=== PATIENT | male | born 1975 | race Two or more races ===

== ENCOUNTER 2023-10-03 16:46 | Emergency (ER) | payer MEDICARE, MEDICAID, SELFPAY ==
[2023-10-03 16:50] VITALS: BP 127/78; PULSE 74; RESP 18; TEMP 36.7; O2SAT 97; BMI 22.8
--- NOTE | 2023-10-03 19:21 | EDS_ITS ---
HPI History of Present Illness Chief Complaint: Complaint Informant: patient and SNF Pain Onset: Weeks Current Severity: Mild Maximum Severity: Mild Narrative Narrative: 48-year-old male history of prior strokes a extended-care facility resident. States he has chronic penile pain. He has a suprapubic catheter. Currently being treated for UTI. They sent him into have this pain evaluated. He also has a history of diabetes. Prior similar symptoms: Yes Recent Illness/Hospitalization: No PFSH PFS Medical History Suprapubic catheter Anxiety Hypothyroidism Diabetes Stroke/cerebrovascular accident Home Medications ?Medication ?Instructions ?Recorded ?Last Taken ?Type acetaminophen 650 mg/20.3 mL oral 650 mg (20.3 mL) G-tube Q6H PRN 12/12/13 Unknown Rx solution PRN mild-mod pain, fever >101F ##1 albuterol sulfate 2.5 mg/3 mL 2.5 mg (3 mL) inhalation Q2H PRN 12/12/13 Unknown Rx (0.083 %) solution for nebulization PRN WHEEZING ##1 artificial 2 drp Q4H PRN DRY EYES ##1 12/12/13 Unknown Rx tears(vwwjelf-svofvwzv-enmndyd) 0.1 %-0.3 %-0.2 % eye drops (GenTeal Tears Moderate) aspirin 325 mg tablet 325 mg G-tube DAILY@0800 ##1 12/12/13 Unknown Rx cephalexin 250 mg/5 mL oral 500 mg (10 mL) PO Q6 ##1 12/12/13 Unknown Rx suspension famotidine 20 mg tablet 20 mg G-tube BID ##1 12/12/13 Unknown Rx insulin detemir U-100 100 unit/mL 40 units (0.4 mL) subcut Q12H ##1 12/12/13 Unknown Rx (3 mL) subcutaneous pen (Levemir FlexTouch U-100 Insulin) ondansetron HCl 8 mg tablet 8 mg G-tube Q6H PRN PRN Nausea ##1 12/12/13 Unknown Rx polyethylene glycol 3350 17 gram 17 g G-tube QHS ##1 12/12/13 Unknown Rx oral powder packet warfarin 5 mg tablet (Jantoven) 5 mg PO DAILY@1700 ##1 12/12/13 Unknown Rx Allergy/AdvReac Type Severity Reaction Status Date / Time No Known Allergies Allergy Verified 11/17/13 02:10 Social History Smoking Status: Former smoker ROS ROS ED ROS Narrative Penile pain. Denies any other complaints. Review of Systems ROS Unobtainable: Denies due to encephalopathy Constitutional Constitutional ED: Denies chills or fever(s) Eyes Eyes: Denies blurry vision ENT ENT ED: Denies ear pain Cardiovascular Cardiovascular: Denies chest pain or palpitations Respiratory/Chest Respiratory/Chest: Denies cough or dyspnea Gastrointestinal Gastrointestinal: Denies abdominal pain Genitourinary Genitourinary ED: Denies dysuria Musculoskeletal Musculoskeletal: Denies arthralgias Integumentary Denies abscess Neurologic Neurologic: Denies headache(s) Psychiatric Psychiatric: Denies anxiety or depression Endocrine Endocrinology: Denies polydipsia Hematologic/Lymphatic Hematologic/Lymphatic: Denies easy bleeding, easy bruising or lymphadenopathy Allergic/Immunologic Allergic/Immunologic ED: Denies mouth swelling, tongue swelling or urticaria EXAM Physical Exam Narrative Exam Narrative: 48-year-old male sitting upright in bed. Vital signs stable afebrile. H EENT exam moist mucous membranes. Neck nontender. Lungs clear to auscultation. Heart regular rhythm rate about 70 no murmur. Chest wall and ribs nontender. Abdomen soft nondistended. Normal bowel sounds no peritoneal signs. Patient does have an indwelling Wu catheter. She currently being treated for UTI. External exam is a circumcised male. There is no penile bleeding or discharge. There is no signs of infection around the foreskin. There is no signs of trauma. There is no bleeding or bruising. His scrotum reportedly only has 1 testicle. He may have a hydrocele. There is no signs of cellulitis or scrotal abscess. There is no signs of torsion. Extremities and skin contracture and paralysis in the right upper and lower extremity. Extreme weakness in the left lower extremity. He is moving the left upper extremity. Neurological he is awake. He answers questions. He obviously has right-sided paralysis from prior strokes. Const Vital Signs: 10/03/23 16:50 Temperature 98.0 F Temperature Source Oral Pulse Rate 74 Respiratory Rate 18 Blood Pressure 127/78 H Blood Pressure Mean 94 Pulse Ox 97 Oxygen Delivery Method Room Air Positive well nourished, well developed and contractures; Negative for cachectic or unkempt General Appearance ED: well developed, contractures and NAD; Negative for unkempt, cachectic or pallor Nutritional Appearance: Negative for cachectic HEENT Reports moist mucous membranes normocephalic and atraumatic; Negative for trauma or tenderness Eyes PERRL and EOMs intact bilaterally General Eye ED: Negative for pale conjunctiva or scleral icterus Neck no lymphadenopathy, supple and no JVD General: Negative for tenderness Resp normal respiratory effort and clear to auscultation bilaterally Effort and Inspection: Negative for retractions Auscultation: Negative for rales, rhonchi or wheezes Cardio regular rate, regular rhythm, S1 normal heart sound, S2 normal heart sound and no murmurs Rate: Negative for bradycardia or tachycardic Rhythm: Negative for abnormal rhythm Heart Sounds: Negative for other GI non-tender, non-distended and no masses Inspection: Negative for abdominal distention Auscultation: normoactive bowel sounds Palpation: soft; Negative for tender or guarding no CVA tenderness Back/Spine no CVA tenderness Extremity Negative for normal to inspection Extremity Narrative: Right-sided paralysis. Left leg weakness. Contracture of the right upper extremity. General Extremety ED: Negative for edema General Extremity: Negative for edema Neuro oriented x3, No moves all extremities and No no focal motor deficits Sensorium / Orientation: alert, oriented to person and oriented to place Motor Exam: strength abnormal Psych mental status grossly normal Appearance: Negative for unkempt Mood & Affect: Negative for depressed, anxious or tearful Thought Process: normal thought process Skin General Skin Exam: Negative for jaundice or pallor Lesions: no lesions Rashes: no rashes MDM MDM MDM Narrative Medical decision making narrative: 68-year-old male sent in from [facility] facility I spoke to them. He has chronic penile pain. He sees urologist at [facility]. He has an indwelling Wu catheter that they are currently treating him for UTI and is on antibiotics. There is nothing specifically abnormal with his penile exam. There is no discharge or bleeding. There are no lesions. He is circumcised. His scrotum he may have a hydrocele. There is no signs of torsion. There is no cellulitis or or scrotal abscess. There is no foreign years. Showing not much to add today with any specific test. He has been worked up for this by the [facility]. Patient was offered something for pain which she did not want at this time. I spoke to the extended care facility. He will be discharged back to there for outpatient urology follow-up. Discharge Plan Triage Chief Complaint: Complaint ED Provider: Igor Rowland Dx/Rx/DC Orders Clinical Impression: Chronic pain in penis, Right hemiplegia, History of stroke, Acute UTI, History of diabetes mellitus Prescriptions: No Action albuterol sulfate 2.5 MG/3 ML solution for nebulization 2.5 mg inhalation Q2H PRN PRN (Reason: WHEEZING) Qty: 1 0RF polyethylene glycol 3350 17 GM powder in packet 17 g G-tube QHS Qty: 1 0RF aspirin 325 MG tablet 325 mg G-tube DAILY@0800 Qty: 1 0RF famotidine 20 MG tablet 20 mg G-tube BID Qty: 1 0RF warfarin [Jantoven] 5 MG tablet 5 mg PO DAILY@1700 Qty: 1 0RF artificial tear(vgqwy-qme-qip) [GenTeal Tears Moderate] 1 DROP bottle 2 drp Each Eye Q4H PRN (Reason: DRY EYES) Qty: 1 0RF insulin detemir U-100 [Levemir FlexTouch U100 Insulin] 100 UNITS/ML insulin pen 40 units subcut Q12H Qty: 1 0RF acetaminophen 650 MG/20 ML solution 650 mg G-tube Q6H PRN PRN (Reason: mild-mod pain, fever >101F) Qty: 1 0RF ondansetron HCl 8 MG tablet 8 mg G-tube Q6H PRN PRN (Reason: Nausea) Qty: 1 0RF cephalexin 250 MG/5 ML suspension for reconstitution 500 mg PO Q6 Qty: 1 0RF Rx Instructions: use for two days then discontinue Primary Care Provider: Dennis Romero Referrals: Dennis Romero MD [Primary Care Provider] - As Needed Activity Restrictions/Additional Instructions: His urologic exam is unremarkable. There is no signs of any penile trauma or infection. He was offered pain meds and did not want anything. Pain meds as needed at your facility. Follow-up with his urologist. Print Language: Malagasy Disposition Disposition: Home, Self Care
[2023-10-03 19:40] VITALS: BP 129/69; PULSE 78; RESP 18; TEMP 36.8; O2SAT 95
--- NOTE | 2023-10-03 21:16 | ED.RN ---
REPORT CALLED TO DIVINE NURSE GAUTAM
== END 2023-10-03 21:21 | disposition home or self-care (01) ==
PROVIDERS: Emergency Provider Emergency Medicine; PCP Family Medicine; Visit Provider Emergency Medicine
DX: N48.89 Other specified disorders of penis (principal); I69.351 Hemiplegia and hemiparesis following cerebral infarction affecting right dominant side; E11.9 Type 2 diabetes mellitus without complications; N39.0 Urinary tract infection, site not specified; Z87.891 Personal history of nicotine dependence; G89.29 Other chronic pain
CPT/HCPCS: 99282

== ENCOUNTER 2023-10-13 17:49 | Emergency (ER) | payer MEDICARE, MEDICAID, SELFPAY ==
[2023-10-13 17:51] VITALS: BP 143/91; PULSE 69; RESP 18; TEMP 36.1; O2SAT 98; BMI 23.9
--- NOTE | 2023-10-13 18:17 | EDS_ITS ---
HPI HPI - Female History of Present Illness Chief Complaint: [facility] Medical History Suprapubic catheter Anxiety Hypothyroidism Diabetes Stroke/cerebrovascular accident Home Medications ?Medication ?Instructions ?Recorded ?Last Taken ?Type acetaminophen 650 mg/20.3 mL oral 650 mg (20.3 mL) G-tube Q6H PRN 12/12/13 Unknown Rx solution PRN mild-mod pain, fever >101F ##1 albuterol sulfate 2.5 mg/3 mL 2.5 mg (3 mL) inhalation Q2H PRN 12/12/13 Unknown Rx (0.083 %) solution for nebulization PRN WHEEZING ##1 artificial 2 drp Q4H PRN DRY EYES ##1 12/12/13 Unknown Rx tears(jgcoshx-syyyxfvc-nogqiyf) 0.1 %-0.3 %-0.2 % eye drops (GenTeal Tears Moderate) aspirin 325 mg tablet 325 mg G-tube DAILY@0800 ##1 12/12/13 Unknown Rx cephalexin 250 mg/5 mL oral 500 mg (10 mL) PO Q6 ##1 12/12/13 Unknown Rx suspension famotidine 20 mg tablet 20 mg G-tube BID ##1 12/12/13 Unknown Rx insulin detemir U-100 100 unit/mL 40 units subcut Q12H ##1 12/12/13 Unknown Rx (3 mL) subcutaneous pen (Levemir FlexTouch U-100 Insulin) ondansetron HCl 8 mg tablet 8 mg G-tube Q6H PRN PRN Nausea ##1 12/12/13 Unknown Rx polyethylene glycol 3350 17 gram 17 g G-tube QHS ##1 12/12/13 Unknown Rx oral powder packet warfarin 5 mg tablet (Jantoven) 5 mg PO DAILY@1700 ##1 12/12/13 Unknown Rx sulfamethoxazole 800 1 tab PO BID #20 tabs 10/13/23 Unknown Rx mg-trimethoprim 160 mg tablet (Bactrim DS) Allergy/AdvReac Type Severity Reaction Status Date / Time No Known Allergies Allergy Verified 10/13/23 17:51 Social History Smoking Status: Former smoker EXAM Physical Exam Const Vital Signs: 10/13/23 17:51 10/13/23 21:50 10/13/23 21:53 Temperature 97.0 F L 97 F L Temperature Source Temporal Pulse Rate 69 82 82 Respiratory Rate 18 16 16 Blood Pressure 143/91 H 133/84 H 133/84 H Blood Pressure Mean 108 100 100 Pulse Ox 98 98 98 Oxygen Delivery Method Room Air Room Air [facility] [place] [facility] Narrative Medical decision making narrative: HISTORY OF PRESENT ILLNESS: 48-year-old male presents with concern for suprapubic catheter replacement. Per fdc stated his catheter is plugged and leaking. History limited per patient because he is nonverbal. REVIEW OF SYSTEMS: Pertinent positives: Suprapubic catheter malfunction Pertinent negatives: None that could be determined PHYSICAL EXAM: Nursing triage notes reviewed, Vital signs reviewed Constitutional: please see mdm HENT: MMM Eyes: Pupils equal round and reactive to light, Extraocular muscles intact Neck: No stridor, no JVD, full neck ROM Lungs: Clear to auscultation, No wheezing or rales. No increased work of breathing, no conversational dyspnea, no accessory muscle use, no nasal flaring. No respiratory distress noted Heart: Regular rate and rhythm, No murmurs, No rubs and No gallops, 2+ distal pulses (radial, femoral, posterior tibial) in all extremities Abdomen: Soft, suprapubic catheter site clean dry intact with no fluctuance induration or redness. : No CVAT Extremities: No edema Neuro: Contractures noted in upper extremities, seems to move all 4 extremities, appears to have sensation in all 4 extremities. Skin: No rash or lesions noted MEDICAL DECISION MAKING: Chief Complaint: Suprapubic catheter malfunction External records reviewed: Reviewed prior ED records: Reviewed ED visit from 10/03/2023 Factors affecting care: CVA Social determinants of health: n extended-care facility resident History obtained from others: EMS Consults: none [facility] Narrative: Patient was hemodynamically stable, afebrile, nontoxic-appearing. Exam without evidence of significant abdominal TTP, no signs of sepsis as vitals are stable. Patient is DNR CC. Attempt to flush suprapubic catheter but was unsuccessful. Using sterile technique an 18 Guyanese Wu cath was placed in the lumen with drainage of purulent thick urine drainage. Will send culture and give prophylactic antibiotics in the form of Bactrim. Will discharge back to [facility] with instructions to follow with urology and continue antibiotics for 10 days. The patient and/or family, caregivers express understanding. The patient and/or family, caregivers agrees with the plan. Shared decision making: I will have a discussion with the patient and or visitors regarding risk/benefits of further testing or admission. They will be made aware of of the risk/benefits inherent in this decision they will be given the opportunity to voice understanding. Total critical care time today provided was at least 0 minutes. This excludes separately billable procedures. Critical care time (if documented) is secondary to the patient having high probability of clinically significant/life threatening deterioration in the patient's condition which required my urgent intervention. Impression: 1. Suprapubic catheter malfunction 2. History of CVA Dispo: Discharge This note was generated with [employer] dictation software. It may contain incorrect words, spelling, and punctuation that were not noted in review of the chart prior to signing. Discharge Plan Triage Chief Complaint: Wu C/O ED Provider: Eric Willams Dx/Rx/DC Orders Instructions: ED Wu Catheter, Care Prescriptions: New sulfamethoxazole-trimethoprim [Bactrim DS] 800-160 mg tablet 1 tab PO BID Qty: 20 0RF No Action albuterol sulfate 2.5 MG/3 ML solution for nebulization 2.5 mg inhalation Q2H PRN PRN (Reason: WHEEZING) Qty: 1 0RF polyethylene glycol 3350 17 GM powder in packet 17 g G-tube QHS Qty: 1 0RF aspirin 325 MG tablet 325 mg G-tube DAILY@0800 Qty: 1 0RF famotidine 20 MG tablet 20 mg G-tube BID Qty: 1 0RF warfarin [Jantoven] 5 MG tablet 5 mg PO DAILY@1700 Qty: 1 0RF artificial tear(xollf-wou-mdt) [GenTeal Tears Moderate] 1 DROP bottle 2 drp Each Eye Q4H PRN (Reason: DRY EYES) Qty: 1 0RF insulin detemir U-100 [Levemir FlexTouch U100 Insulin] 100 UNITS/ML insulin pen 40 units subcut Q12H Qty: 1 0RF acetaminophen 650 MG/20 ML solution 650 mg G-tube Q6H PRN PRN (Reason: mild-mod pain, fever >101F) Qty: 1 0RF ondansetron HCl 8 MG tablet 8 mg G-tube Q6H PRN PRN (Reason: Nausea) Qty: 1 0RF cephalexin 250 MG/5 ML suspension for reconstitution 500 mg PO Q6 Qty: 1 0RF Rx Instructions: use for two days then discontinue Primary Care Provider: Dennis Romero Referrals: Ronaldo Hubbard MD [Med Staff - Active Staff] - Dennis Romero MD [Primary Care Provider] - Activity Restrictions/Additional Instructions: Thank you for trusting us with your care today! Please take Tylenol (2 pills, 650 mg), ibuprofen (2 pills, 400 mg) every 6 hours as needed for pain and fever control. Please take antibiotics as prescribed until course complete. Please return to the emergency department if your symptoms change or worsen. Please follow with your urologist for further outpatient evaluation and management. Print Language: Croatian Disposition Disposition: Home, Self Care
--- NOTE | 2023-10-13 18:45 | ED.RN ---
DR. TABARES IN AT BEDSIDE. REPLACES SUPRAPUBIC CATH WITH 18FR SALAZAR CATH KIT. DRAINING
[2023-10-13] MEDS: SMZ/TPM Suspension 20 ML PO (18:51)
[2023-10-13 21:50] VITALS: BP 133/84; PULSE 82; RESP 16; O2SAT 98
[2023-10-13 21:53] VITALS: BP 133/84; PULSE 82; RESP 16; TEMP 36.1; O2SAT 98
[2023-10-14 00:36] LABS: Bedside Glucose 103 mg/dL (74-106)
== END 2023-10-14 00:35 | disposition home or self-care (01) ==
PROVIDERS: Emergency Provider Emergency Medicine; PCP Family Medicine; Visit Provider Emergency Medicine
DX: T83.018A Breakdown (mechanical) of other urinary catheter, initial encounter (principal); E11.9 Type 2 diabetes mellitus without complications; Z87.891 Personal history of nicotine dependence; Z86.73 Personal history of transient ischemic attack (TIA), and cerebral infarction without residual deficits; E03.9 Hypothyroidism, unspecified; F41.9 Anxiety disorder, unspecified; Y73.8 Miscellaneous gastroenterology and urology devices associated with adverse incidents, not elsewhere classified; Z79.82 Long term (current) use of aspirin; Z79.899 Other long term (current) drug therapy
CPT/HCPCS: 82962; 87077; 87086; 87088; 87186; 99282

== ENCOUNTER 2024-02-13 21:27 | Emergency (ER) | payer MEDICARE, MEDICAID, SELFPAY ==
[2024-02-13 21:31] VITALS: BP 151/91; PULSE 78; RESP 16; TEMP 36.4; O2SAT 100; BMI 23.5
[2024-02-13 23:16] LABS: Absolute Lymphocyte Count 2.16 X10^3/uL (0.83-4.51); Absolute Neutrophil Count 4.5 X10^3/uL (2.0-7.7); Basophil# 0.09 X10^3/uL; Basophil% 1.2 % (0-1); Eosinophils% 3.9 % (0-5); Hematocrit 47.8 % (40-54); Hemoglobin 16.1 g/dL (13.0-16.5); Lymphocyte # 2.16 X10^3/ul (0.83-4.51); Lymphocyte % 27.9 % (19-41); Mean Corp Hgb Conc 33.7 g/dL (32-36); Mean Corpuscular Hgb 28.3 pg (27.0-32.0); Mean Platelet Vol. 9.2 fl (6.2-12.0); Monocyte# 0.62 X10^3/uL; NRBC Flagged by Analyzer 0 % (0-5); Neutrophil # 4.51 X10^3/uL (2.7-7.7); Neutrophil % 58.4 % (47-70); Platelet Count 206 K/mm3 (150-450); RBC Distribution Width CV 13.5 % (11.6-14.6); RBC Distribution Width SD 41.6 fl (35.1-43.9); Red Blood Count 5.69 M/mm3 (4.6-6.2); White Blood Count 7.7 K/mm3 (4.4-11.0)
[2024-02-13 23:33] LABS: ALB/GLOB Ratio 0.8 RATIO (0.9-2.4); AST(SGOT) 21 U/L (15-37); Alanine Aminotransfer ALT/SGPT 27 U/L (16-61); Albumin, Serum 3.6 g/dL (3.2-5.0); Alkaline Phosphatase 187 U/L (45-117); Anion Gap 4 (5-15); BUN 10 mg/dL (7-18); BUN/Creat Ratio 16.1 RATIO (10-20); Calcium,Total 8.9 mg/dL (8.5-10.1); Chloride 107 mmol/L (98-107); Creatinine, Serum 0.62 mg/dL (0.70-1.30); EST Glomerular Filtration Rate 145 mL/min (>60); Est Glom Filt Rate - Afr Amer 176 mL/min (>60); Estimated Creatinine Clearance 122.61 ml/min; Globulin 4.3 g/dL (2.2-4.2); Glucose 90 mg/dL (74-106); Lipase 42 U/L (13-75); Potassium 3.7 mmol/L (3.5-5.1); Protein, Total 7.9 g/dL (6.4-8.2); Sodium Level 140 mmol/L (136-145)
--- NOTE | 2024-02-13 23:33 | EDS_ITS ---
HPI History of Present Illness Chief Complaint: Wu C/O Narrative Narrative: Patient is a 49-year-old male with past medical history of CVA, diabetes, hypothyroidism, suprapubic catheter who presented to the emergency department chief complaint of leaking suprapubic Wu catheter. According to the nursing facility they were planning on replacing the suprapubic Wu catheter as they typically do this when it starts to leak however the patient was refusing for them to do so therefore they had him sent here for further evaluation management. Patient is complaining of some abdominal pain he states that he seen several physicians in the past about similar symptoms. [facility] Medical History Suprapubic catheter Anxiety Hypothyroidism Diabetes Stroke/cerebrovascular accident Home Medications ?Medication ?Instructions ?Recorded ?Last Taken ?Type acetaminophen 650 mg/20.3 mL oral 650 mg (20.3 mL) G-tube Q6H PRN 12/12/13 Unknown Rx solution PRN mild-mod pain, fever >101F ##1 albuterol sulfate 2.5 mg/3 mL 2.5 mg (3 mL) inhalation Q2H PRN 12/12/13 Unknown Rx (0.083 %) solution for nebulization PRN WHEEZING ##1 artificial 2 drp Q4H PRN DRY EYES ##1 12/12/13 Unknown Rx tears(utjcjme-bprhemjw-qpioeee) 0.1 %-0.3 %-0.2 % eye drops (GenTeal Tears Moderate) aspirin 325 mg tablet 325 mg G-tube DAILY@0800 ##1 12/12/13 Unknown Rx cephalexin 250 mg/5 mL oral 500 mg (10 mL) PO Q6 ##1 12/12/13 Unknown Rx suspension famotidine 20 mg tablet 20 mg G-tube BID ##1 12/12/13 Unknown Rx insulin detemir U-100 100 unit/mL 40 units subcut Q12H ##1 12/12/13 Unknown Rx (3 mL) subcutaneous pen (Levemir FlexTouch U-100 Insulin) ondansetron HCl 8 mg tablet 8 mg G-tube Q6H PRN PRN Nausea ##1 12/12/13 Unknown Rx polyethylene glycol 3350 17 gram 17 g G-tube QHS ##1 12/12/13 Unknown Rx oral powder packet warfarin 5 mg tablet (Jantoven) 5 mg PO DAILY@1700 ##1 12/12/13 Unknown Rx sulfamethoxazole 800 1 tab PO BID #20 tabs 10/13/23 Unknown Rx mg-trimethoprim 160 mg tablet (Bactrim DS) Allergy/AdvReac Type Severity Reaction Status Date / Time No Known Allergies Allergy Verified 10/13/23 17:51 Social History Smoking Status: Former smoker ROS ROS ED ROS Narrative Constitutional: Denies any headaches, fevers, chills Cardiovascular: Denies chest pain palpitations Respiratory: Denies shortness of breath Abdomen: Complains of abdominal pain and leaking suprapubic Wu catheter Neurological: Has residual deficits from previous stroke EXAM Physical Exam Narrative Exam Narrative: General: Patient lying in bed rest comfortably did not appear to be acute distress Head: Atraumatic, normocephalic Eyes: PERRL bilateral, EOMI bilateral, no conjunctival injection noted Neck: Soft, supple, trachea midline Cardiovascular: Regular rate and rhythm no murmurs gallops rubs noted Respiratory: Clear to auscultation bilaterally Abdomen: Soft, nondistended,, diffuse tenderness to palpation no rebound or guarding on exam, suprapubic Wu catheter in place no concern for surrounding infection Neurological: Patient is at his baseline according to staff Skin: Warm, dry, intact Const Vital Signs: 02/13/24 21:31 Temperature 97.6 F L Temperature Source Temporal Pulse Rate 78 Respiratory Rate 16 Blood Pressure 151/91 H Blood Pressure Mean 111 Pulse Ox 100 Oxygen Delivery Method Room Air MDM MDM MDM Narrative Medical decision making narrative: Patient is a 49-year-old male who presented to the emergency department with a chief complaint of leaking Wu catheter. Patient will have a workup performed here on the differential diagnose includes but not limited to clogged suprapubic Wu catheter causing overflow incontinence, urinary tract infection. Once workup is obtained reviewed he will be reevaluated. Patient CBC reviewed and showed no evidence leukocytosis white blood count normal at 7.7, hemoglobin stable at 16.1, platelet count was noted to be normal at 206. Patient's sodium normal at 140, potassium normal 3.7, creatinine was 0.62. Patient's AST and ALT are 2127 respectively. Patient's urinalysis p ending as this was just sent down after suprapubic Wu catheter placement here in the emergency department. Suprapubic Wu catheter was replaced using the sterile fashion patient tolerated the procedure well without complications. Urine will also be sent for culture. Patient CT abdomen pelvis without contrast is also pending. Patient's case was signed out to oncoming provider to follow-up on CT results as well as urinalysis to make ultimate disposition see his note for further details. Lab Data Labs: Laboratory Results - last 24 hr 02/13/24 23:06 WBC 7.7 RBC 5.69 Hgb 16.1 Hct 47.8 MCV 84.0 MCH 28.3 MCHC 33.7 RDW Std Deviation 41.6 RDW Coeff of Donna 13.5 Plt Count 206 MPV 9.2 Immature Gran % (Auto) 0.600 Neut % (Auto) 58.4 Lymph % (Auto) 27.9 Swift % (Auto) 8.0 Eos % (Auto) 3.9 Baso % (Auto) 1.2 H Absolute Neuts (auto) 4.5 Absolute Lymphs (auto) 2.16 Nucleated RBC % 0 Sodium 140 Potassium 3.7 Chloride 107 Carbon Dioxide 29.0 Anion Gap 4 L BUN 10 Creatinine 0.62 L Estim Creat Clear Calc 122.61 Est GFR (MDRD) Af Amer 176 Est GFR (MDRD) Non-Af 145 BUN/Creatinine Ratio 16.1 Glucose 90 Calcium 8.9 Total Bilirubin 0.90 AST 21 ALT 27 Alkaline Phosphatase 187 H Total Protein 7.9 Albumin 3.6 Globulin 4.3 H Albumin/Globulin Ratio 0.8 L Lipase 42 Discharge Plan Triage Chief Complaint: Wu C/O ED Provider: Pete Melendez Dx/Rx/DC Orders Prescriptions: No Action albuterol sulfate 2.5 MG/3 ML solution for nebulization 2.5 mg inhalation Q2H PRN PRN (Reason: WHEEZING) Qty: 1 0RF polyethylene glycol 3350 17 GM powder in packet 17 g G-tube QHS Qty: 1 0RF aspirin 325 MG tablet 325 mg G-tube DAILY@0800 Qty: 1 0RF famotidine 20 MG tablet 20 mg G-tube BID Qty: 1 0RF warfarin [Jantoven] 5 MG tablet 5 mg PO DAILY@1700 Qty: 1 0RF artificial tear(oelnn-vye-ird) [GenTeal Tears Moderate] 1 DROP bottle 2 drp Each Eye Q4H PRN (Reason: DRY EYES) Qty: 1 0RF insulin detemir U-100 [Levemir FlexTouch U100 Insulin] 100 UNITS/ML insulin pen 40 units subcut Q12H Qty: 1 0RF acetaminophen 650 MG/20 ML solution 650 mg G-tube Q6H PRN PRN (Reason: mild-mod pain, fever >101F) Qty: 1 0RF ondansetron HCl 8 MG tablet 8 mg G-tube Q6H PRN PRN (Reason: Nausea) Qty: 1 0RF cephalexin 250 MG/5 ML suspension for reconstitution 500 mg PO Q6 Qty: 1 0RF Rx Instructions: use for two days then discontinue sulfamethoxazole-trimethoprim [Bactrim DS] 800-160 mg tablet 1 tab PO BID Qty: 20 0RF Primary Care Provider: Dennis Romero Referrals: Dennis Romero MD [Primary Care Provider] - Print Language: Amharic
[2024-02-14] MEDS: Morphine 4 MG/ML Syringe IM (00:23)
[2024-02-14] MEDS: Ondansetron 4 MG/2 ML Vial IV (00:23)
[2024-02-14 00:53] LABS: Color, Urine Yellow (Yellow); Glucose, Dipstick Normal (Normal); Ketone-Dipstick 5 mg/dl (Negative); Leukocyte Esterase-Dipstick 500 /ul (Negative); Nitrite-Dipstick Positive (Negative); Occult Blood-Urine 250 /ul (Negative); Protein-Dipstick 100 mg/dl (Negative); Specific Gravity, Urine 1.015 (1.002-1.030); Urine Bilirubin Dipstick Negative (Negative); Urine Clarity Turbid (Clear); Urine Urobilinogen 1 mg/dl (Normal)
[2024-02-14 01:20] LABS: White Blood Cells >100 SEEN /hpf (0-5)
[2024-02-14 01:21] LABS: Bacteria 3+ /hpf (None Seen); Mucous, Urine RARE /hpf (<or=2+); Red Blood Cells-Urine > 100 SEEN /hpf (0-5); Squamous Epithelial Cells - UA 10-25 SEEN /hpf (0-5)
[2024-02-14 01:28] VITALS: BP 133/78; PULSE 76
[2024-02-14 01:59] VITALS: BP 138/75; PULSE 70; RESP 16; TEMP 36.6; O2SAT 95
[2024-02-14 02:31] LABS: Bedside Glucose 81 mg/dL (74-106)
--- NOTE | 2024-02-14 22:31 | CT_ITS ---
INDICATION: suprapubic cath, abd pain EXAMINATION: CT Abdomen And Pelvis W/ Contrast Injection TECHNIQUE: Helically acquired images were obtained of the abdomen and pelvis with sagittal and coronal reconstructed images. Individualized dose optimization techniques were used for this CT. IV contrast dosage and agent: 100 mL of Isovue-370. Oral contrast: None. COMPARISON: None. FINDINGS: VESSELS: No abdominal aortic aneurysm or dissection. LIVER: No evidence of a mass. No intrahepatic or extrahepatic biliary duct dilation. GALLBLADDER: Not visualized. PANCREAS: No focal solid or cystic mass. No evidence of pancreatitis. SPLEEN: Normal. ADRENAL GLANDS: Normal. KIDNEYS AND URETERS: No urinary tract stone. No hydronephrosis or hydroureter. No significant asymmetric perinephric stranding. URINARY BLADDER: Nondistended with a suprapubic catheter coiled in the lumen of the bladder. No evidence of wall thickening and no perivesicular stranding. BOWEL: No evidence of diverticulosis or diverticulitis. Appendix appears normal. No evidence of bowel obstruction. REPRODUCTIVE ORGANS: Right hydrocele. The left testicle is not visualized. PERITONEUM: No intraabdominal free fluid or free air. LYMPH NODES: No pathologically enlarged mesenteric or retroperitoneal lymph nodes. ABDOMINAL WALL: No abdominal or pelvic wall hernia. BONES: Severe degenerative at L5-S1 with erosive changes of the endplates. No abnormal enhancement within the disc space or adjacent paravertebral soft tissues. LOWER CHEST: Visualized lung bases are unremarkable. CT/Abdomen/Pelvis W IV Cont ONLY IMPRESSION: 1. No acute intra-abdominal abnormality. 2. Suprapubic catheter coiled in the urinary bladder which is nondistended. 3. Severe degenerative at L5-S1 with erosive changes of the endplates. No abnormal enhancement within the disc space or adjacent paravertebral soft tissues. Consider follow-up with MRI. Electronically Signed: Jeff Osborne DO at 1:03 EST ,
== END 2024-02-14 02:34 | disposition home or self-care (01) ==
PROVIDERS: Emergency Provider Emergency Medicine; PCP Family Medicine; Visit Provider Emergency Medicine
DX: T83.031A Leakage of indwelling urethral catheter, initial encounter (principal); E11.9 Type 2 diabetes mellitus without complications; Z79.4 Long term (current) use of insulin; X58.XXXA Exposure to other specified factors, initial encounter; Z79.01 Long term (current) use of anticoagulants; Z79.82 Long term (current) use of aspirin; Z86.73 Personal history of transient ischemic attack (TIA), and cerebral infarction without residual deficits; Z87.891 Personal history of nicotine dependence
CPT/HCPCS: 51702; 74177; 80053; 81001; 82962; 83690; 85025; 87077; 87086; 87088; 87186; 96372; 96374; 99285; Q9967; A4216; J2405

== ENCOUNTER 2024-04-04 | Emergency (ER) | payer MEDICARE, MEDICAID, SELFPAY ==
[2024-04-04 00:03] VITALS: PULSE 67; RESP 16; TEMP 36.8; O2SAT 95; BMI 21.9
[2024-04-04 00:06] VITALS: BP 152/85; PULSE 69; RESP 18; TEMP 36.8; O2SAT 95
--- NOTE | 2024-04-04 00:36 | CT_ITS ---
INDICATION: abdominal distenstion EXAMINATION: CT Abdomen And Pelvis W/ Contrast Injection TECHNIQUE: Helically acquired images were obtained of the abdomen and pelvis with sagittal and coronal reconstructed images. Individualized dose optimization techniques were used for this CT. IV contrast dosage and agent: 75 mL of Isovue-300. Oral contrast: None. COMPARISON: 02/14/2024 CT. FINDINGS: VESSELS: No abdominal aortic aneurysm or dissection. LIVER: No evidence of a mass. No intrahepatic or extrahepatic biliary duct dilation. GALLBLADDER: Status post cholecystectomy. PANCREAS: No focal solid or cystic mass. No evidence of pancreatitis. SPLEEN: Normal. ADRENAL GLANDS: Normal. KIDNEYS AND URETERS: No urinary tract stone. No hydronephrosis or hydroureter. No significant asymmetric perinephric stranding. Simple left renal cyst with no follow-up recommended. URINARY BLADDER: A suprapubic catheter is in place. BOWEL: No evidence of diverticulosis or diverticulitis. Appendix appears normal. No evidence of bowel obstruction. REPRODUCTIVE ORGANS: No evidence of a pelvic mass. PERITONEUM: No intraabdominal free fluid or free air. LYMPH NODES: No pathologically enlarged mesenteric or retroperitoneal lymph nodes. ABDOMINAL WALL: Small fat-containing right periumbilical/supraumbilical hernia. BONES: No acute abnormality. LOWER CHEST: Visualized lung bases are unremarkable. CT/Abdomen/Pelvis W IV Cont ONLY IMPRESSION: No acute abnormality. Electronically Signed: Jeff Osborne DO at 2:46 EST ,
--- NOTE | 2024-04-04 00:47 | EX.ED.DYSGE1 ---
HPI History of Present Illness Chief Complaint: Wu C/O Informant: patient, EMS and SNF Narrative Narrative: 49-year-old male presenting to the emergency room with report of suprapubic pain and rectal pain. Patient states that when he squeezes his butt cheeks he feels like there is a rock on his anus. He states it is very painful. He states he had bowel movements today but his belly feels distended with air. He is not having vomiting. He has a suprapubic catheter and notes some superior pubic discomfort. He has a history of frequent UTIs. No reported fever. He is anticoagulated on Eliquis. He tells me that the medicine he takes at noon he does not wish to take any believes that that is giving him gas. He is not sure what it is and when I look at his med list I cannot tell what he would be getting at noon that would cause this. He tells me that they have recently changed his suprapubic catheter. [facility] Medical History Suprapubic catheter Anxiety Hypothyroidism Diabetes Stroke/cerebrovascular accident Home Medications ?Medication ?Instructions ?Recorded ?Last Taken ?Type acetaminophen 650 mg/20.3 mL oral 650 mg (20.3 mL) G-tube Q6H PRN 12/12/13 Unknown Rx solution PRN mild-mod pain, fever >101F ##1 albuterol sulfate 2.5 mg/3 mL 2.5 mg (3 mL) inhalation Q2H PRN 12/12/13 Unknown Rx (0.083 %) solution for nebulization PRN WHEEZING ##1 artificial 2 drp Q4H PRN DRY EYES ##1 12/12/13 Unknown Rx tears([id number]) 0.1 %-0.3 %-0.2 % eye drops (GenTeal Tears Moderate) aspirin 325 mg tablet 325 mg G-tube DAILY@0800 ##1 12/12/13 Unknown Rx cephalexin 250 mg/5 mL oral 500 mg (10 mL) PO Q6 ##1 12/12/13 Unknown Rx suspension famotidine 20 mg tablet 20 mg G-tube BID ##1 12/12/13 Unknown Rx insulin detemir U-100 100 unit/mL 40 units subcut Q12H ##1 12/12/13 Unknown Rx (3 mL) subcutaneous pen (Levemir FlexTouch U-100 Insulin) ondansetron HCl 8 mg tablet 8 mg G-tube Q6H PRN PRN Nausea ##1 12/12/13 Unknown Rx polyethylene glycol 3350 17 gram 17 g G-tube QHS ##1 12/12/13 Unknown Rx oral powder packet warfarin 5 mg tablet (Jantoven) 5 mg PO DAILY@1700 ##1 12/12/13 Unknown Rx sulfamethoxazole 800 1 tab PO BID #20 tabs 10/13/23 Unknown Rx mg-trimethoprim 160 mg tablet (Bactrim DS) cephalexin 250 mg/5 mL oral 500 mg (10 mL) PO TID 7 days #210 02/14/24 Unknown Rx suspension mL apixaban 2.5 mg tablet (Eliquis) 2.5 mg PO BID 04/04/24 Unknown History baclofen 10 mg tablet 10 mg PO TID 04/04/24 Unknown History diazepam 5 mg tablet 5 mg PO DAILY PRN anxiety 04/04/24 Unknown History fluvoxamine 50 mg tablet 50 mg PO BID 04/04/24 Unknown History folic acid 1 mg tablet 1 mg PO DAILY 04/04/24 Unknown History gabapentin 100 mg capsule 100 mg PO TID 04/04/24 Unknown History levothyroxine 50 mcg tablet 50 mcg PO DAILY 04/04/24 Unknown History sennosides 8.6 mg capsule (senna) 8.6 mg PO BID 04/04/24 Unknown History Allergy/AdvReac Type Severity Reaction Status Date / Time No Known Allergies Allergy Verified 04/04/24 00:03 Social History Smoking Status: Former smoker ROS ROS ED Constitutional Constitutional ED: Denies chills, fever(s) or weight loss Eyes Eyes: Denies change in vision or diplopia ENT ENT ED: Denies ear pain, rhinorrhea or sore throat Cardiovascular Cardiovascular: Denies chest pain, orthopnea, palpitations or racing heartbeat Respiratory/Chest Respiratory/Chest: Denies cough, dyspnea or orthopnea Gastrointestinal Gastrointestinal: Reports abdominal pain and other Details: Abdominal bloating ; Denies diarrhea, nausea or vomiting Genitourinary Genitourinary ED: Reports other Details: Rectal pain suprapubic catheter ; Denies dysuria, hematuria or urinary frequency Musculoskeletal Musculoskeletal: Denies arthralgias or myalgias Integumentary Denies abscess or rash Neurologic Neurologic: Denies headache(s) or weakness Psychiatric Psychiatric: Denies anxiety, depression, suicidal ideation or suicidal thoughts Endocrine Endocrinology: Denies polydipsia, polyphagia or polyuria Allergic/Immunologic Allergic/Immunologic ED: Denies mouth swelling, tongue swelling or urticaria EXAM Physical Exam Const Vital Signs: 04/04/24 00:03 04/04/24 00:06 04/04/24 01:06 Temperature 98.2 F 98.2 F 98.2 F Temperature Source Oral Oral Oral Pulse Rate 67 69 85 Respiratory Rate 16 18 18 Respiratory Effort Respiratory Pattern Blood Pressure 152/85 H 144/96 H Blood Pressure Mean 107 112 Pulse Ox 95 95 97 Oxygen Delivery Method Room Air Room Air Room Air 04/04/24 02:02 04/04/24 02:10 04/04/24 04:00 Temperature Temperature Source Pulse Rate 64 74 Respiratory Rate 16 16 Respiratory Effort Normal Respiratory Pattern Normal Blood Pressure 139/83 H 132/77 H Blood Pressure Mean 101 95 Pulse Ox 99 99 Oxygen Delivery Method Room Air Room Air 04/04/24 05:03 Temperature 98.2 F Temperature Source Pulse Rate 65 Respiratory Rate 18 Respiratory Effort Respiratory Pattern Blood Pressure 129/71 H Blood Pressure Mean 90 Pulse Ox 95 Oxygen Delivery Method Positive well nourished and well developed General Appearance ED: well developed and NAD HEENT Reports normocephalic, head/scalp atraumatic and moist mucous membranes Eyes PERRL and EOMs intact bilaterally Neck no lymphadenopathy, supple and no JVD Resp normal respiratory effort and clear to auscultation bilaterally Cardio regular rate, regular rhythm and no murmurs GI GI Narrative: Suprapubic catheter site clean dry and intact. He reports tenderness to palpation diffusely. Does feel slightly distended with air Palpation: soft Narrative: Rectal examination performed with female nurse present. There is an obvious tender and inflamed but not thrombosed hemorrhoid. Back/Spine no CVA tenderness and normal ROM Extremity Extremity Narrative: Chronic contractures slight lower extremity edema Neuro oriented x3 Neuro Narrative: Chronic contractures of the extremities Sensorium / Orientation: alert Psych mental status grossly normal Mood & Affect: Negative for depressed or tearful Skin no rashes or lesions noted and no wounds MDM MDM MDM Narrative Medical decision making narrative: Differential diagnosis includes but not limited to inflamed hemorrhoid thrombosed hemorrhoid perirectal abscess bowel obstruction volvulus UTI colitis diverticulitis Basic blood work was obtained shows a white count of 5.7 hemoglobin of 15 platelet count of 226 glucose 186 creatinine 0.67 BUN of 19 urinalysis was obtained 50-100 red cells greater than 100 white cells 5-10 squamous cells crystals and sediment noted but 3+ bacteria and positive nitrates. This is sent for culture. CT of the abdomen pelvis was obtained with IV contrast. This was read by radiology and reviewed by myself. No obvious bowel obstruction or evidence of colitis was noted. There are some gaseous distention of the large colon. Patient's abdominal exam is unchanged. He received a liter of IV fluids and then a second liter to evaluate urinary output as he did not seem to have much output despite a normal BUN/creatinine and no other evidence of dehydration. His urine output his picked up at last evaluation was 200 cc in the past hour. The abdominal exam continues to show a soft abdomen with gaseous distention. No significant tenderness noted. I reviewed the patient's prior urine cultures. Last 2 have shown E. coli as well as Proteus in the last 1 also with Pseudomonas. All of which appear to be sensitive to Zosyn. He received a dose of Zosyn here in the department. He is not febrile he does not appear septic he has a normal white count. We spoke with [facility] and they are able to give him IV antibiotics which should cover his urine bacteria until the culture comes back. Some this may in fact be colonization but given the suprapubic discomfort and the nitrates I think it is reasonable to treat. Would recommend Anusol for rectal pain. History & Record Review Discussion w/independent historian: Patient Additional record(s) reviewed:: Prior ED visit and Prior labs Lab Data Attestation: I reviewed the patient's lab results. Labs: Laboratory Results - last 24 hr 04/04/24 04/04/24 00:44 01:57 WBC 5.7 RBC 5.37 Hgb 15.0 Hct 43.8 MCV 81.6 MCH 27.9 MCHC 34.2 RDW Std Deviation 40.0 RDW Coeff of Donna 13.8 Plt Count 226 MPV 9.6 Immature Gran % (Auto) 0.700 Neut % (Auto) 42.6 L Lymph % (Auto) 32.5 Morgan % (Auto) 13.7 H Eos % (Auto) 8.6 H Baso % (Auto) 1.9 H Absolute Neuts (auto) 2.4 Absolute Lymphs (auto) 1.85 Nucleated RBC % 0 Sodium 136 Potassium 3.8 Chloride 103 Carbon Dioxide 30.0 Anion Gap 4 L BUN 19 H Creatinine 0.67 L Estim Creat Clear Calc 110.51 Est GFR (MDRD) Af Amer 162 Est GFR (MDRD) Non-Af 134 BUN/Creatinine Ratio 28.5 H Glucose 186 H Calcium 9.4 Total Bilirubin 0.90 Direct Bilirubin 0.26 AST 20 ALT 20 Alkaline Phosphatase 212 H Total Protein 7.5 Albumin 3.4 Globulin 4.1 Lipase 66 Urine Color Straw Urine Clarity Turbid Urine pH 8.0 Ur Specific [place] 1.015 Urine Protein 100 H Urine Glucose (UA) Normal Urine Ketones Negative Urine Occult Blood 250 H Urine Nitrite Positive H Urine Bilirubin Negative Urine Urobilinogen 1 H Ur Leukocyte Esterase 500 H Urine RBC 50-100 SEEN Urine WBC >100 SEEN Ur Squamous Epith Cells 5-10 SEEN Triple Phos Crystals 3+ Amorphous Sediment 3+ Urine Bacteria 3+ Urine Mucus 1+ Radiography Diagnostic Testing: Clinical Impression(s) from Imaging Studies Abdomen/Pelvis CT 04/04/24 00:36 IMPRESSION: No acute abnormality. Electronically Signed: Jeff Osborne DO at 2:46 EST Reading Location ID and State: [facility] / [place] Tel , Service support , Discharge Plan Triage Chief Complaint: Wu C/O ED Provider: Dequan Persaud Dx/Rx/DC Orders Clinical Impression: Complicated UTI (urinary tract infection), Hemorrhoids, external, Abdominal pain, Pain in rectum, Anticoagulated Instructions: UTIs Understanding, Indwelling Urinary Catheter Dc, ED Hemorrhoids Prescriptions: No Action albuterol sulfate 2.5 MG/3 ML solution for nebulization 2.5 mg inhalation Q2H PRN PRN (Reason: WHEEZING) Qty: 1 0RF polyethylene glycol 3350 17 GM powder in packet 17 g G-tube QHS Qty: 1 0RF aspirin 325 MG tablet 325 mg G-tube DAILY@0800 Qty: 1 0RF famotidine 20 MG tablet 20 mg G-tube BID Qty: 1 0RF warfarin [Jantoven] 5 MG tablet 5 mg PO DAILY@1700 Qty: 1 0RF artificial tear([id number]) [GenTeal Tears Moderate] 1 DROP bottle 2 drp Each Eye Q4H PRN (Reason: DRY EYES) Qty: 1 0RF insulin detemir U-100 [Levemir FlexTouch U100 Insulin] 100 UNITS/ML insulin pen 40 units subcut Q12H Qty: 1 0RF acetaminophen 650 MG/20 ML solution 650 mg G-tube Q6H PRN PRN (Reason: mild-mod pain, fever >101F) Qty: 1 0RF ondansetron HCl 8 MG tablet 8 mg G-tube Q6H PRN PRN (Reason: Nausea) Qty: 1 0RF cephalexin 250 MG/5 ML suspension for reconstitution 500 mg PO Q6 Qty: 1 0RF Rx Instructions: use for two days then discontinue sulfamethoxazole-trimethoprim [Bactrim DS] 800-160 mg tablet 1 tab PO BID Qty: 20 0RF baclofen 10 mg tablet 10 mg PO TID Eliquis 2.5 mg tablet 2.5 mg PO BID diazepam 5 mg tablet 5 mg PO DAILY PRN (Reason: anxiety) levothyroxine 50 mcg tablet 50 mcg PO DAILY folic acid 1 mg tablet 1 mg PO DAILY fluvoxamine 50 mg tablet 50 mg PO BID gabapentin 100 mg capsule 100 mg PO TID senna 8.6 mg capsule 8.6 mg PO BID cephalexin 250 mg/5 mL suspension for reconstitution 500 mg PO TID 7 Days Qty: 210 0RF Primary Care Provider: Dennis Romero Referrals: Dennis Romero MD [Primary Care Provider] - 3-5 Days Print Language: Syrian Disposition Disposition: Retirement Facility Discharge Location: [facility]
[2024-04-04 00:50] LABS: Absolute Lymphocyte Count 1.85 X10^3/uL (0.83-4.51); Absolute Neutrophil Count 2.4 X10^3/uL (2.0-7.7); Basophil# 0.11 X10^3/uL; Basophil% 1.9 % (0-1); Eosinophil# 0.49 X10^3/uL; Eosinophils% 8.6 % (0-5); Hematocrit 43.8 % (40-54); Lymphocyte # 1.85 X10^3/ul (0.83-4.51); Lymphocyte % 32.5 % (19-41); Mean Corp Hgb Conc 34.2 g/dL (32-36); Mean Corpuscular Hgb 27.9 pg (27.0-32.0); Mean Corpuscular Volume 81.6 fL (80-94); Mean Platelet Vol. 9.6 fl (6.2-12.0); Monocyte# 0.78 X10^3/uL; Monocyte% 13.7 % (0-10); NRBC Flagged by Analyzer 0 % (0-5); Neutrophil # 2.43 X10^3/uL (2.7-7.7); Neutrophil % 42.6 % (47-70); Platelet Count 226 K/mm3 (150-450); RBC Distribution Width CV 13.8 % (11.6-14.6); Red Blood Count 5.37 M/mm3 (4.6-6.2); White Blood Count 5.7 K/mm3 (4.4-11.0)
[2024-04-04 01:06] VITALS: BP 144/96; PULSE 85; RESP 18; TEMP 36.8; O2SAT 97
[2024-04-04 01:32] LABS: AST(SGOT) 20 U/L (15-37); Alanine Aminotransfer ALT/SGPT 20 U/L (16-61); Albumin, Serum 3.4 g/dL (3.2-5.0); Alkaline Phosphatase 212 U/L (45-117); Anion Gap 4 (5-15); BUN 19 mg/dL (7-18); BUN/Creat Ratio 28.5 RATIO (10-20); Bilirubin, Direct 0.26 mg/dL (0.00-0.30); Calcium,Total 9.4 mg/dL (8.5-10.1); Chloride 103 mmol/L (98-107); Creatinine, Serum 0.67 mg/dL (0.70-1.30); EST Glomerular Filtration Rate 134 mL/min (>60); Est Glom Filt Rate - Afr Amer 162 mL/min (>60); Estimated Creatinine Clearance 110.51 ml/min; Globulin 4.1 g/dL (2.2-4.2); Glucose 186 mg/dL (74-106); Lipase 66 U/L (13-75); Potassium 3.8 mmol/L (3.5-5.1); Protein, Total 7.5 g/dL (6.4-8.2); Sodium Level 136 mmol/L (136-145)
[2024-04-04 02:02] VITALS: BP 139/83; PULSE 64; RESP 16; O2SAT 99
[2024-04-04] MEDS: Lidocaine Jelly 2% 20 ML Syringe (URO-JET) 1 APPLIC TOPICAL (02:04)
[2024-04-04] MEDS: 0.9% Normal Saline (1000mL) 1,000 ML 999 ML IV ×2 (02:06→03:23)
[2024-04-04 02:11] LABS: Color, Urine Straw (Yellow); Glucose, Dipstick Normal (Normal); Ketone-Dipstick Negative (Negative); Leukocyte Esterase-Dipstick 500 /ul (Negative); Nitrite-Dipstick Positive (Negative); Occult Blood-Urine 250 /ul (Negative); Protein-Dipstick 100 mg/dl (Negative); Specific Gravity, Urine 1.015 (1.002-1.030); Urine Bilirubin Dipstick Negative (Negative); Urine Clarity Turbid (Clear); Urine Urobilinogen 1 mg/dl (Normal)
[2024-04-04 02:43] LABS: Amorphous Sediment 3+; Bacteria 3+ /hpf (None Seen); Red Blood Cells-Urine 50-100 SEEN /hpf (0-5); Squamous Epithelial Cells - UA 5-10 SEEN /hpf (0-5); White Blood Cells >100 SEEN /hpf (0-5)
[2024-04-04 02:44] LABS: Mucous, Urine 1+ /hpf (<or=2+); Triple Phosphate Crystals Ur 3+ /hpf (<or=1+)
[2024-04-04] MEDS: Piperacil/Tazobactam 3.375 GM in 0.9% Normal Saline (50mL MB+) 50 ML IV (03:51)
[2024-04-04 04:00] VITALS: BP 132/77; PULSE 74; RESP 16; O2SAT 99
[2024-04-04 05:03] VITALS: BP 129/71; PULSE 65; RESP 18; TEMP 36.8; O2SAT 95
--- NOTE | 2024-04-04 05:05 | ED.RN ---
[place] facility advised they are able to give IV antibiotics at their facility. [facility] for IV antibiotics at [place] ([facility]) per Dr. Persaud. Charge nurse aware.
--- NOTE | 2024-04-04 05:25 | ED.RN ---
Report called to nurse at [place] ([facility]), updated about plan of care. No further questions at this time.
== END 2024-04-04 06:07 | disposition skilled nursing facility (03) ==
PROVIDERS: Emergency Provider Emergency Medicine; PCP Family Medicine; Visit Provider Emergency Medicine
DX: T83.511A Infection and inflammatory reaction due to indwelling urethral catheter, initial encounter (principal); E11.9 Type 2 diabetes mellitus without complications; N39.0 Urinary tract infection, site not specified; K64.4 Residual hemorrhoidal skin tags; Z87.891 Personal history of nicotine dependence; R10.9 Unspecified abdominal pain; K62.89 Other specified diseases of anus and rectum; Z87.440 Personal history of urinary (tract) infections; Z79.01 Long term (current) use of anticoagulants; E03.9 Hypothyroidism, unspecified; Z79.890 Hormone replacement therapy; Z79.899 Other long term (current) drug therapy; B96.20 Unspecified Escherichia coli [E. coli] as the cause of diseases classified elsewhere; B96.4 Proteus (mirabilis) (morganii) as the cause of diseases classified elsewhere; B96.5 Pseudomonas (aeruginosa) (mallei) (pseudomallei) as the cause of diseases classified elsewhere; Y73.8 Miscellaneous gastroenterology and urology devices associated with adverse incidents, not elsewhere classified
CPT/HCPCS: 74177; 80048; 80076; 81001; 83690; 85025; 87077; 87086; 87088; 87186; 96361; 96365; 99285; Q9967; A4216